=== PATIENT | female | born 1955 | race Caucasian/White ===

== ENCOUNTER → 2023-07-04 13:19 | Outpatient (BNVA) | payer MEDICARE, SELFPAY | PROVIDERS: Visit Provider Family Medicine Adult Medicine | DX: J02.9 Acute pharyngitis, unspecified (principal) | CPT/HCPCS: 87880 ==

== ENCOUNTER 2024-03-26 18:16 | Emergency (ER) | payer MEDICARE, MEDICAID, SELFPAY ==
[2024-03-26 18:22] VITALS: BP 157/89; PULSE 88; TEMP 36.6; O2SAT 95; BMI 38.6
--- NOTE | 2024-03-26 18:33 | CTR_ITS ---
PROCEDURE INFORMATION: Exam: CT Head Without Contrast Exam date and time: 03/26/2024 7:07 PM Age: 68 years old Clinical indication: Pain; Headache; Additional info: URIBE TECHNIQUE: Imaging protocol: Computed tomography of the head without contrast. Radiation optimization: All CT scans at this facility use at least one of these dose optimization techniques: automated exposure control; mA and/or kV adjustment per patient size (includes targeted exams where dose is matched to clinical indication); or iterative reconstruction. COMPARISON: No relevant prior studies available. RADIATION DOSE METRICS: Total DLP (mGy-cm): 994 FINDINGS: Brain: No acute intracranial hemorrhage or territorial infarction. No mass effect or midline shift. Cerebral ventricles: No ventriculomegaly. Paranasal sinuses: Visualized sinuses are unremarkable. No fluid levels. Mastoid air cells: Visualized mastoid air cells are well aerated. Bones: Unremarkable. No acute fracture. Soft tissues: Unremarkable. CT/CT head wo con* [id number] IMPRESSION: No acute intracranial findings.
--- NOTE | 2024-03-26 18:34 | W.ED.HA ---
HPI - Headache General: Chief Complaint: Headache Stated Complaint: Headache Time Seen by Provider: 03/26/24 18:29 Source: patient Mode of arrival: ambulatory Limitations: no limitations History of Present Illness: 68-year-old female states that 2 days ago she felt like she had a pop in her right side of her head and then a spiderweb that went through her head. She states that she does not typically have headaches and she had some pressure pain since and states at rest her pain is minimal some mild increased with exertion denies any severe pain denies this being the worst headache of life denies any nausea or loss conscious. Associated symptoms: Deny chest pain, fever(s), nausea, rash or vomiting Review of Systems Const: Denies: fever(s), chills, body aches or change in appetite Eyes: Denies: blurry vision or eye discomfort ENMT: Denies: throat pain or dental pain Card: Denies: chest pain Resp: Denies: dyspnea GI: Denies: abdominal pain, nausea, vomiting or diarrhea Musc: Denies: neck pain or back pain Skin/Breast: Denies: rash Neuro: Reports: headache(s) PFSH ED PFSH: Medical History Elevated blood pressure reading in office with diagnosis of hypertension Chronic neck and back pain BMI 40.0-44.9, adult Post-menopausal atrophic vaginitis Hypertension Elevated blood pressure reading without diagnosis of hypertension Allergic rhinitis due to allergen Bulging disc Tonsillar calculus Allergic pharyngitis Surgical History Hx of hysterectomy History of removal of skin mole Family History Father Heart attack Mother Heart disease Brother Heart disease Social History Smoking and tobacco/nicotine status: former use of tobacco/nicotine Quit status (tobacco/nicotine): has quit using Alcohol intake: current Alcohol intake frequency: holidays/special occasions only Alcohol type: wine Substance/Drug Use: never Physical Exam Const: COMMON NORMALS: no acute distress, patient oriented x3 and healthy appearing HENMT: COMMON NORMALS: normocephalic and atraumatic HEAD & SCALP: normocephalic and atraumatic Eye: COMMON NORMALS: Equal, round and reactive pupils present and EOMs intact bilaterally PUPIL: Yes Equal, round and reactive pupils present Neck/C-Spine: COMMON NORMALS: full ROM and supple Chest: COMMONS NORMALS: normal inspection of the chest Resp: COMMON NORMALS: normal respiratory effort Cardio: COMMON NORMALS: regular rate, regular rhythm and No murmurs present (Cardio) RATE: regular rate RHYTHM: regular rhythm Extremity: COMMON NORMALS: normal to inspection and full ROM Neuro: COMMON NORMALS: patient oriented x3, moves all extremities and no focal motor deficits Psych: COMMON NORMALS: mental status grossly normal, Normal thought process present and cooperative THOUGHT PROCESS: Normal thought process present Skin: COMMON NORMALS: no rashes or lesions noted and no wounds GENERAL SKIN EXAM: no rashes or lesions noted Course Vital Signs: Vital signs: Vital Signs Temperature 97.8 F 03/26/24 18:22 Pulse Rate 87 03/26/24 19:30 Blood Pressure 131/87 03/26/24 19:26 Pulse Oximetry 94 03/26/24 19:30 Oxygen Delivery Me thod Room Air 03/26/24 19:30 MDM - Headache Medical Decision Making Patient presents with a headache is not the worst headache of her life she is well-appearing here head CT is normal she has no signs of meningitis or subarachnoid hemorrhage she is stable for discharge follow-up with PCP return if worsening. Medical Records I reviewed the patient's medical records. Lab Data Radiology Impressions Head CT 03/26/24 18:33 IMPRESSION: No acute intracranial findings. All radiology interpretation(s) finalized by discharge Discharge Plan Discharge Patient Disposition: Home Clinical Impression: Headache Condition: Stable Prescriptions: No Action estradiol 0.01 % (0.1 mg/gram) cream 1 appful vaginal DAILY Qty: 42.5 5RF Rx Instructions: for 7 days then once a week doxycycline hyclate 100 mg tablet 100 mg PO BID 14 Days Qty: 28 0RF metoprolol succinate 25 mg tablet extended release 24 hr 25 mg PO DAILY Qty: 90 1RF cyproheptadine 4 mg tablet 4 mg PO .q hs PRN (Reason: drainage) Qty: 90 1RF loratadine 10 mg tablet 10 mg PO DAILY Qty: 90 1RF Discharge Orders: Discharge ED (Routine); Ordered 03/26/24 Ordered By: Ant Gramajo Referrals: Adarsh Segura MD [Primary Care Provider] - Discharge Diet: Advance as tolerated Discharge Activity: Resume usual activity Patient Instructions: General Headache (ED) Coding Level of Care Code ED 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
[2024-03-26 18:56] VITALS: BP 148/94; PULSE 80; O2SAT 92
[2024-03-26 19:26] VITALS: BP 131/87; PULSE 87; O2SAT 94
[2024-03-26 19:30] VITALS: PULSE 87; O2SAT 94
[2024-03-26] MEDS: ketorolac 30 mg/mL INJ 15 MG IVP (19:34)
[2024-03-26] MEDS: ondansetron 2 mg/ML SDV 2 mL 4 MG IVP (19:35)
[2024-03-26] MEDS: sodium chloride 0.9% 1,000 ML 999 ML IV (19:39)
[2024-03-26 20:55] VITALS: BP 135/76; PULSE 62; O2SAT 95
== END 2024-03-26 20:57 | disposition home or self-care (01) ==
PROVIDERS: Emergency Provider Emergency Medicine; PCP Family Medicine Adult Medicine
DX: R51.9 Headache, unspecified (principal)
CPT/HCPCS: 70450; 96374; 96375; 99285; J1885; J2405; J7030